=== PATIENT | female | born 1970 | race Two or more races ===

== ENCOUNTER 2021-08-19 18:36 | Emergency (ER) | payer OTHER ==
[~2021-08-19] VITALS: Ht 157.5 cm; Wt 66.7 kg
[2021-08-19 19:15] VITALS: BP 136/68
[2021-08-19] MEDS ORDERED: ONDANSETRON ODT 4 MG TAB PO ONE (22:00)
[2021-08-19] MEDS ORDERED: ONDA-144 PO (22:04)
[2021-08-19] MEDS ORDERED: DICL75TA3 PO (22:04)
== END 2021-08-19 22:33 | disposition home or self-care (01) ==
LOC: ER 18:36
DX: S09.90XA Unspecified injury of head, initial encounter (principal); F07.81 Postconcussional syndrome; W18.39XA Other fall on same level, initial encounter; Y93.89 Activity, other specified; Y92.89 Other specified places as the place of occurrence of the external cause; Y99.8 Other external cause status
CPT/HCPCS: 99283; Q0162

== ENCOUNTER 2022-10-01 13:39 | Emergency (ER) | payer OTHER ==
[~2022-10-01] VITALS: Ht 157.5 cm; Wt 71.4 kg
[~2022-10-01 13:39] MED LIST: DICL75TA3 PO; ONDA-144 PO
[2022-10-01 14:38] LABS: Basophils # (auto) 0.1 10 ^3/uL (0-0.2); Basophils % (auto) 0.6 % (0.0-2.0); Eosinophils # (auto) 0.1 10 ^3/uL (0-0.8); Eosinophils % (auto) 1.2 % (0.0-7.0); Hematocrit 42.1 % (36.0-46.0); Hemoglobin 14.1 g/dL (12.2-16.2); Lymphocytes # (auto) 3.3 10 ^3/uL (0.4-5.4); Lymphocytes % (auto) 34.7 % (10.0-50.0); Mean Corpuscular Hemoglobin 33.8 pg (28.0-32.0); Mean Corpuscular Hgb Conc. 33.5 g/dL (32.0-36.0); Mean Corpuscular Volume 101.1 fL (80.0-100.0); Monocytes # (auto) 0.5 10 ^3/uL (0-1.3); Monocytes % (auto) 5.6 % (0.0-12.0); Neutrophils # (auto) 5.5 10 ^3/uL (1.6-8.6); Neutrophils % (auto) 57.9 % (37.0-80.0); Nucleated Red Blood Cells % 0.1 %; Red Blood Cells 4.16 10^6/uL (4.0-5.20); Red Cell Distribution Width 13.4 % (11.8-14.3); White Blood Cell 9.5 10^3/uL (4.4-10.8)
[2022-10-01 15:04] LABS: Albumin 3.6 g/dL (3.4-5.0); BUN/Creatinine Ratio 19.7 (10.0-20.0); Calcium 8.7 mg/dL (8.5-10.1); Potassium 3.9 mmol/L (3.5-5.1)
[2022-10-01 15:07] LABS: Bilirubin, Total 0.6 mg/dL (0.2-1.0); Total Protein 7.3 g/dL (6.4-8.2)
[2022-10-01 15:46] VITALS: BP 130/67; PULSE 70; RESP 16; TEMP 98; O2SAT 97
[2022-10-01] MEDS ORDERED: FAMOTIDINE 20 MG TAB PO ONE (16:30)
[2022-10-01] MEDS ORDERED: MAALOX PLUS or MAALOX 30 ML PO ONE (16:30)
[2022-10-01] MEDS ORDERED: DONNATAL 5ml ORAL Elix (BELLADONNA ALK-PHENOBARB) PO ONE (16:30)
[2022-10-01] MEDS ORDERED: LIDOCAINE VISCOUS 2% 15ML UD PO ONE (16:30)
[2022-10-01 16:42] LABS: Urine Bacteria FEW /hpf (None Seen); Urine Blood Negative /uL (Negative); Urine Clarity HAZY (Clear); Urine Color Colorless (Yellow); Urine Protein, UAD Negative (Negative); Urine Specific Gravity 1.015 (1.001-1.035); Urine Urobilinogen Normal (Negative); Urine WBC 6 /hpf (0 - 5); Urine pH 5.5 (5.0-8.0)
[2022-10-01] MEDS ORDERED: NITR-87 PO (17:26)
[2022-10-01] MEDS ORDERED: OMEP-434 PO (17:26)
== END 2022-10-01 17:33 | disposition home or self-care (01) ==
LOC: ER 13:39
DX: K21.9 Gastro-esophageal reflux disease without esophagitis (principal); N39.0 Urinary tract infection, site not specified
CPT/HCPCS: 36415; 76705; 80053; 81001; 83690; 85025